=== PATIENT | male | born 1985 | race Caucasian/White ===

== ENCOUNTER 2017-01-04 10:19 | Emergency (ER) | payer MEDICARE, OTHER ==
[2017-01-04 11:36] LABS: BASO % 0.2 % (0.2-1.2); EOS # 0.1 10_X3_uL (0.0-0.5); EOS % 0.7 % (0.8-7.0); GRAN # 15.4 10_X3_uL (1.8-5.4); GRAN % 93.3 % (34.0-67.9); HEMATOCRIT 24.7 % (40-51); HEMOGLOBIN 8.2 g/dL (13.7-17.5); LYMPH # 0.6 10_X3_uL (1.3-3.6); LYMPH % 3.8 % (21.8-53.1); MEAN CORPUSCULAR HEMOGLOBIN 29.1 pg (27.0-33.0); MEAN CORPUSCULAR HGB CONC 33.2 g/dL (32.0-36.0); MEAN CORPUSCULAR VOLUME 87.6 fL (79-92); MEAN PLATELET VOLUME 9.8 fl (7.5-11.5); MONO # 0.3 10_X3_uL (0.3-0.8); PLATELET COUNT 241 x10_3/uL (163-337); RED BLOOD COUNT 2.82 x10_6/uL (4.6-6.1); RED CELL DISTRIBUTION WIDTH 17.5 % (11.6-14.4); WHITE BLOOD COUNT 16.5 x10_3/uL (4.2-9.1)
[2017-01-04 11:46] LABS: ALBUMIN 4.4 gm/dL (3.4-5.0); BILIRUBIN,TOTAL 0.42 mg/dL (0.0-1.0); CREATININE 15.1 mg/dL (0.6-1.3); TOTAL PROTEIN 6.8 gm/dL (6.4-8.2)
[2017-01-04 11:58] LABS: POTASSIUM 7.4 mmol/L (3.5-5.1)
[2017-01-04 15:59] LABS: CALCIUM 7.7 mg/dL (8.7-10.7)
== END 2017-01-04 13:42 | disposition left against medical advice (07) ==
LOC: ER 10:19
PROVIDERS: Emergency Medicine
DX: J18.9 Pneumonia, unspecified organism (principal); E87.5 Hyperkalemia; I50.9 Heart failure, unspecified; N18.9 Chronic kidney disease, unspecified; Z98.890 Other specified postprocedural states; R19.7 Diarrhea, unspecified; R11.10 Vomiting, unspecified; Z88.0 Allergy status to penicillin; Z88.1 Allergy status to other antibiotic agents; Z79.899 Other long term (current) drug therapy
CPT/HCPCS: 36415; 71010; 80053; 83605; 83880; 85025; 87040; 87400; 94664; 99070; 99283-25; 99284

== ENCOUNTER 2017-02-05 21:03 | Emergency (ER) | payer MEDICARE, OTHER ==
[2017-02-05 21:38] LABS: BASO % 0.2 % (0.2-1.2); EOS # 0.4 10_X3_uL (0.0-0.5); EOS % 3.6 % (0.8-7.0); GRAN # 7.9 10_X3_uL (1.8-5.4); GRAN % 79.8 % (34.0-67.9); HEMATOCRIT 22.4 % (40-51); LYMPH # 1.1 10_X3_uL (1.3-3.6); LYMPH % 11.1 % (21.8-53.1); MEAN CORPUSCULAR HEMOGLOBIN 29.4 pg (27.0-33.0); MEAN CORPUSCULAR HGB CONC 31.3 g/dL (32.0-36.0); MEAN CORPUSCULAR VOLUME 94.1 fL (79-92); MEAN PLATELET VOLUME 9.5 fl (7.5-11.5); MONO # 0.5 10_X3_uL (0.3-0.8); MONO % 5.3 % (5.3-12.2); PLATELET COUNT 190 x10_3/uL (163-337); RED BLOOD COUNT 2.38 x10_6/uL (4.6-6.1); WHITE BLOOD COUNT 9.9 x10_3/uL (4.2-9.1)
[2017-02-05 21:57] LABS: ALBUMIN 3.9 gm/dL (3.4-5.0); BILIRUBIN,TOTAL 0.37 mg/dL (0.0-1.0); CALCIUM 7.8 mg/dL (8.7-10.7); CREATININE 10.1 mg/dL (0.6-1.3)
[2017-02-05 22:04] LABS: POTASSIUM 6.7 mmol/L (3.5-5.1)
== END 2017-02-05 22:46 | disposition home or self-care (01) ==
LOC: ER 21:03
PROVIDERS: General Practice
DX: J84.9 Interstitial pulmonary disease, unspecified (principal); D64.9 Anemia, unspecified; I51.7 Cardiomegaly; I13.0 Hypertensive heart and chronic kidney disease with heart failure and stage 1 through stage 4 chronic kidney disease, or unspecified chronic kidney disease; E87.5 Hyperkalemia; N18.9 Chronic kidney disease, unspecified; I73.9 Peripheral vascular disease, unspecified; I50.9 Heart failure, unspecified; J44.9 Chronic obstructive pulmonary disease, unspecified; Z99.2 Dependence on renal dialysis; Z88.0 Allergy status to penicillin; F17.210 Nicotine dependence, cigarettes, uncomplicated; Z79.899 Other long term (current) drug therapy
CPT/HCPCS: 36415; 71010; 80053; 83605; 85025; 87040; 94664; 99283-25; 99284

== ENCOUNTER 2017-03-06 19:55 | Emergency (ER) | payer MEDICARE, OTHER | END 2017-03-07 00:55 | disposition home or self-care (01) | LOC: ER 19:55 | DX: S93.402A Sprain of unspecified ligament of left ankle, initial encounter (principal); L03.116 Cellulitis of left lower limb; X50.0XXA Overexertion from strenuous movement or load, initial encounter; Y92.009 Unspecified place in unspecified non-institutional (private) residence as the place of occurrence of the external cause; N19 Unspecified kidney failure; I10 Essential (primary) hypertension; Z79.899 Other long term (current) drug therapy | CPT/HCPCS: 73600; 73620; 96372; 99070; 99283-25; Q0169 ==

== ENCOUNTER 2017-03-29 19:18 | Emergency (ER) | payer MEDICARE, OTHER ==
[2017-03-29 19:54] LABS: BASO # 0.1 10_X3_uL (0.0-0.1); BASO % 0.6 % (0.2-1.2); EOS # 0.5 10_X3_uL (0.0-0.5); EOS % 5.6 % (0.8-7.0); GRAN # 6.4 10_X3_uL (1.8-5.4); GRAN % 72.7 % (34.0-67.9); HEMATOCRIT 26.3 % (40-51); HEMOGLOBIN 8.6 g/dL (13.7-17.5); LYMPH # 1.2 10_X3_uL (1.3-3.6); LYMPH % 13.8 % (21.8-53.1); MEAN CORPUSCULAR HEMOGLOBIN 29.1 pg (27.0-33.0); MEAN CORPUSCULAR HGB CONC 32.7 g/dL (32.0-36.0); MEAN CORPUSCULAR VOLUME 88.9 fL (79-92); MEAN PLATELET VOLUME 9.6 fl (7.5-11.5); MONO # 0.6 10_X3_uL (0.3-0.8); MONO % 7.3 % (5.3-12.2); PLATELET COUNT 206 x10_3/uL (163-337); RED BLOOD COUNT 2.96 x10_6/uL (4.6-6.1); RED CELL DISTRIBUTION WIDTH 15.4 % (11.6-14.4); WHITE BLOOD COUNT 8.7 x10_3/uL (4.2-9.1)
[2017-03-29 20:08] LABS: ALBUMIN 4.3 gm/dL (3.4-5.0); BILIRUBIN,TOTAL 0.53 mg/dL (0.0-1.0); CALCIUM 8.6 mg/dL (8.7-10.7); POTASSIUM 4.3 mmol/L (3.5-5.1); TOTAL PROTEIN 6.7 gm/dL (6.4-8.2)
[2017-03-29 20:12] LABS: CREATININE 9.1 mg/dL (0.6-1.3)
== END 2017-03-29 20:55 | disposition left against medical advice (07) ==
LOC: ER 19:18
PROVIDERS: Emergency Medicine
DX: R10.9 Unspecified abdominal pain (principal); R11.10 Vomiting, unspecified; R19.7 Diarrhea, unspecified; I10 Essential (primary) hypertension; D64.9 Anemia, unspecified; J44.9 Chronic obstructive pulmonary disease, unspecified; Z98.890 Other specified postprocedural states; F17.210 Nicotine dependence, cigarettes, uncomplicated; Z88.0 Allergy status to penicillin; Z88.1 Allergy status to other antibiotic agents
CPT/HCPCS: 36415; 80053; 82150; 83690; 85025; 99070; 99283